=== PATIENT | female | born 1980 | race Caucasian/White ===

== ENCOUNTER → 2017-12-16 | Outpatient (CLI) | payer BC | LOC: COL.RAD 08:01 | DX: K80.20 Calculus of gallbladder without cholecystitis without obstruction (principal) ==

== ENCOUNTER 2018-06-29 05:43 | Day surgery (SDC) | payer BC ==
[2018-06-29] VITALS (9 sets, daily range): BP systolic 112–147; BP diastolic 63–79; PULSE 58–77; TEMP 97.6–98.5
[~2018-06-29] VITALS: Ht 172.7 cm; Wt 120.5 kg
[2018-06-29] MEDS ORDERED: COLACE 100100 MG/CAP PO (09:18)
[2018-06-29] MEDS ORDERED: PERCOCET 325 MG1 TA2 PO (09:19)
[2018-06-29] MEDS ORDERED: MOTRIN 600600 MG/TAB PO (09:19)
== END 2018-06-29 14:03 | disposition home or self-care (01) ==
LOC: SDCO 05:43 → SURG 10:10 → SDCO 14:03
DX: K80.10 Calculus of gallbladder with chronic cholecystitis without obstruction (principal); E66.9 Obesity, unspecified; Z68.41 Body mass index [BMI] 40.0-44.9, adult; Z91.040 Latex allergy status; Z88.8 Allergy status to other drugs, medicaments and biological substances; Z83.3 Family history of diabetes mellitus; Z80.3 Family history of malignant neoplasm of breast
CPT/HCPCS: OP; J0690; J1100; J1885; J2405; J2704; J3010; J7120; Q9967

== ENCOUNTER → 2018-12-30 | Outpatient (CLI) | payer BC ==
[~2018-12-30] MED LIST: COLACE 100100 MG/CAP PO; MOTRIN 600600 MG/TAB PO; PERCOCET 325 MG1 TA2 PO
== END ==
LOC: COL.RAD 14:30
DX: R51 Headache (principal); Z86.79 Personal history of other diseases of the circulatory system

== ENCOUNTER → 2019-01-03 | Outpatient (CLI) | payer BC | LOC: COL.RAD 13:19 | DX: R51 Headache (principal) | CPT/HCPCS: Q9967 ==

== ENCOUNTER → 2021-01-30 | Outpatient (CLI) | payer BC | LOC: MC.RAD 09:13 | DX: Z12.31 Encounter for screening mammogram for malignant neoplasm of breast (principal) ==

== ENCOUNTER → 2024-05-25 | Outpatient (CLI) | payer OTHER | LOC: MC.RAD 07:03 | DX: Z12.31 Encounter for screening mammogram for malignant neoplasm of breast (principal) ==